=== PATIENT | female | born 1940 | race Two or more races ===

== ENCOUNTER 2024-03-20 20:31 | Inpatient (IN) | payer MEDICARE, OTHER ==
[~2024-03-20] VITALS: Ht 167.6 cm; Wt 79.2 kg
[2024-03-20 21:33] LABS: BASOPHILS # (AUTO) 0.1 K/UL (0.0-0.2); BASOPHILS % (AUTO) 0.5 % (0.0-2.0); EOSINOPHILS % (AUTO) 0.1 % (0.0-7.0); HEMATOCRIT 42.2 % (31.2-41.9); HEMOGLOBIN 13.6 g/dL (10.9-14.3); LYMPHOCYTES # (AUTO) 1.9 K/uL (0.8-4.8); MEAN CORPUSCULAR HEMOGLOBIN 30.3 uug (24.7-32.8); MEAN CORPUSCULAR HGB CONC 32 g/dL (32.3-35.6); MEAN CORPUSCULAR VOLUME 93.8 fL (75.5-95.3); MONOCYTES # (AUTO) 1.5 K/uL (0.1-1.30); MONOCYTES % (AUTO) 12.3 % (0.0-11.0); NEUTROPHILS # (AUTO) 8.6 K/uL (1.8-8.9); NEUTROPHILS % (AUTO) 71.1 % (38.5-71.5); PLATELET COUNT (AUTO) 253 K/uL (179-408); RED BLOOD CELL COUNT(AUTO) 4.49 MIL/uL (3.63-4.92); RED CELL DISTRIBUTION WIDTH 18.1 % (12.3-17.7); WHITE BLOOD COUNT (AUTO) 12.1 K/uL (3.8-11.8)
[2024-03-20 21:57] LABS: LACTIC ACID 2.8 mmol/L (0.4-2.0)
[2024-03-20 21:58] LABS: DIFFERENTIAL COMMENT 1
[2024-03-20 22:07] LABS: ALANINE AMINOTRANSFERASE 60 U/L (14-59); ALBUMIN 3.8 g/dL (3.4-5.0); ALKALINE PHOSPHATASE 94 U/L (50-136); ASPARTATE AMINOTRANSFERASE 66 U/L (15-37); BILIRUBIN,DIRECT 0.2 mg/dL (0.0-0.2); BILIRUBIN,TOTAL 0.6 mg/dL (0.2-1.0); CALCIUM 8.5 mg/dL (8.5-10.1); CARBON DIOXIDE 23 mmol/L (21-32); CREATININE 3.8 mg/dL (0.6-1.3); GLUCOSE 154 mg/dL (74-106); NT-PRO BNP 1649 pg/mL (0-125); POTASSIUM 4.8 mmol/L (3.5-5.1); TOTAL PROTEIN, SERUM 7.3 g/dL (6.4-8.2)
[2024-03-20 22:20] LABS: CHLORIDE 132 mmol/L (98-107); SODIUM SERUM 172 mmol/L (136-145); UREA NITROGEN, BLOOD 140 mg/dL (7-18)
[2024-03-20] MEDS: IV NORMAL SALINE 1000 ML BAG IV ONE ×2 (22:30→23:32)
[2024-03-20] MEDS ORDERED: MEROPENEM 1GM/NS 100ML IVPB **ER PYXIS ONLY IV ONE (23:24)
[2024-03-20] MEDS: MEROPENEM 1,000 MG in IV NORMAL SALINE 100 ML IV ONE (23:31)
[2024-03-21 01:18] LABS: ABG BASE EXCESS -5.4 mmol/L (-2.0-3.0); ABG HCO3 18.2 mmol/L (21.0-28.0); ABG PCO2 30.5 mmHg (32.0-45.0); ABG PH 7.393 (7.350-7.450); ABG PO2 127.6 mmHg (83.0-108.0); ABG SITE RIGHT BRACHIAL; AaDO2 98.6 mmHg; COHb 0.1 % (0.5-1.5); MetHb 0.3 % (0.0-1.5); O2Hb 97.9 % (94.0-98.0)
[2024-03-21] MEDS: IV NORMAL SALINE 1000 ML BAG IV ONE ×2 (02:23→04:16)
[2024-03-21 03:23] LABS: *BLOOD, URINE 2+ (NEGATIVE); *CLARITY,URINE CLOUDY (CLEAR); *COLOR,URINE DARK YELLOW (YELLOW); *KETONES,URINE 1+ (NEGATIVE); *PROTEIN,URINE 2+ (NEGATIVE); *UROBILINOGEN,URINE 0.2 E.U./dl (NORMAL); LEUKOCYTE ESTERASE ,URINE 1+ (NEGATIVE); NITRITE, URINE NEGATIVE (NEGATIVE); UGLUCOSE NEGATIVE (NEGATIVE)
[2024-03-21 03:33] LABS: *BILIRUBIN,URIN 2+ (NEGATIVE)
[2024-03-21 05:08] VITALS: BP 126/87; TEMP 97.6; O2SAT 100
[2024-03-21] MEDS ORDERED: ONDANSETRON 4 MG/2 ML VIAL IV PRN (05:45)
[2024-03-21] MEDS ORDERED: FERR-56 (06:08)
[2024-03-21] MEDS ORDERED: PRIM50TA27 (06:08)
[2024-03-21] MEDS ORDERED: INSU100C4 SUBCUT (06:08)
[2024-03-21] MEDS ORDERED: METF-440 (06:08)
[2024-03-21] MEDS ORDERED: GABA100C (06:08)
[2024-03-21] MEDS ORDERED: VALP250C (06:08)
[2024-03-21] MEDS ORDERED: LEVO88CA4 (06:08)
[2024-03-21] MEDS ORDERED: MULT-634 (06:08)
[2024-03-21] MEDS ORDERED: DOCU-141 (06:08)
[2024-03-21] MEDS ORDERED: MIRT-121 PO (06:08)
[2024-03-21] MEDS ORDERED: SACU1TAB7 (06:08)
[2024-03-21] MEDS ORDERED: TOLT2TAB2 (06:08)
[2024-03-21] MEDS ORDERED: QUET50TA (06:08)
[2024-03-21] MEDS ORDERED: QUET25TA PO (06:08)
[2024-03-21] MEDS ORDERED: MEROPENEM 500MG/NS 50ML PB ***ER PYXIS ONLY IV ONE (06:32)
[2024-03-21] MEDS: IV 1/2NS 1000 ML 1,000 ML IV PRN (06:41)
[2024-03-21] MEDS: MEROPENEM 500 MG in IV NORMAL SALINE 50 ML IV ONE (06:42)
[2024-03-21 07:12] LABS: BASOPHILS % (AUTO) 0.5 % (0.0-2.0); EOSINOPHILS % (AUTO) 0.1 % (0.0-7.0); HEMATOCRIT 37.3 % (31.2-41.9); LYMPHOCYTES # (AUTO) 1.4 K/uL (0.8-4.8); MEAN CORPUSCULAR HEMOGLOBIN 30.9 uug (24.7-32.8); MEAN CORPUSCULAR HGB CONC 32 g/dL (32.3-35.6); MEAN CORPUSCULAR VOLUME 95.9 fL (75.5-95.3); MONOCYTES # (AUTO) 0.9 K/uL (0.1-1.30); MONOCYTES % (AUTO) 9.9 % (0.0-11.0); NEUTROPHILS # (AUTO) 6.8 K/uL (1.8-8.9); NEUTROPHILS % (AUTO) 74.5 % (38.5-71.5); PLATELET COUNT (AUTO) 178 K/uL (179-408); RED BLOOD CELL COUNT(AUTO) 3.89 MIL/uL (3.63-4.92); RED CELL DISTRIBUTION WIDTH 17.9 % (12.3-17.7); WHITE BLOOD COUNT (AUTO) 9.1 K/uL (3.8-11.8)
[2024-03-21 07:47] VITALS: BP 98/44; TEMP 97; O2SAT 100
[2024-03-21 08:07] LABS: CALCIUM 6.8 mg/dL (8.5-10.1); CARBON DIOXIDE 19 mmol/L (21-32); CREATININE 2.6 mg/dL (0.6-1.3); GLUCOSE 139 mg/dL (74-106); MAGNESIUM 3.1 mg/dL (1.8-2.4); PHOSPHOROUS 4.1 mg/dL (2.5-4.9); POTASSIUM 4.7 mmol/L (3.5-5.1)
[2024-03-21 08:47] LABS: CHLORIDE 138 mmol/L (98-107); SODIUM SERUM 171 mmol/L (136-145); UREA NITROGEN, BLOOD 113 mg/dL (7-18)
[2024-03-21 08:48] LABS: DIFFERENTIAL COMMENT 1
[2024-03-21] MEDS: HEPARIN SODIUM,PORCINE 5,000 UNITS/ML VIAL SQ SCH (09:14)
[2024-03-21 09:23] VITALS: BP 110/72; TEMP 97.8; O2SAT 99
[2024-03-21 10:20] LABS: CALCIUM 6.6 mg/dL (8.5-10.1); CARBON DIOXIDE 19 mmol/L (21-32); CREATININE 2.2 mg/dL (0.6-1.3); GLUCOSE 137 mg/dL (74-106); POTASSIUM 4.6 mmol/L (3.5-5.1)
[2024-03-21] MEDS ORDERED: DIVA125C5 PO (11:04)
[2024-03-21] MEDS ORDERED: SACU1TAB PO (11:13)
[2024-03-21] MEDS ORDERED: MIRT7.5T10 PO (11:15)
[2024-03-21] MEDS ORDERED: NYST15PO4 TP (11:18)
[2024-03-21] MEDS ORDERED: LACT10SO58 PO (11:20)
[2024-03-21] MEDS ORDERED: PSYL0.4C2 PO (11:21)
[2024-03-21] MEDS ORDERED: SENN-18 PO (11:22)
[2024-03-21] MEDS ORDERED: MAG-55 PO (11:23)
[2024-03-21] MEDS ORDERED: ZOLP5TAB2 PO (11:24)
[2024-03-21] MEDS ORDERED: ASCO500C18 PO (11:25)
[2024-03-21] MEDS ORDERED: ASPI-1169 PO (11:25)
[2024-03-21] MEDS ORDERED: CHOL100045 PO (11:26)
[2024-03-21] MEDS ORDERED: CLON0.5T4 PO (11:27)
[2024-03-21] MEDS ORDERED: CYAN-51 PO (11:28)
[2024-03-21] MEDS ORDERED: BISA10SU61 RC (11:32)
[2024-03-21] MEDS ORDERED: BISA-79 PO (11:33)
[2024-03-21 11:36] LABS: SODIUM SERUM 171 mmol/L (136-145)
[2024-03-21 11:37] LABS: CHLORIDE 138 mmol/L (98-107); UREA NITROGEN, BLOOD 105 mg/dL (7-18)
[2024-03-21] MEDS ORDERED: BISACODYL 10 MG SUPP.RECT RC PRN (12:00)
[2024-03-21] MEDS ORDERED: BISACODYL 5 MG TABLET.DR PO PRN (12:00)
[2024-03-21] MEDS: IV D5W 1000ML 1,000 ML IV PRN (13:22)
[2024-03-21 14:55] LABS: CALCIUM 6.7 mg/dL (8.5-10.1); CARBON DIOXIDE 18 mmol/L (21-32); CREATININE 1.8 mg/dL (0.6-1.3); GLUCOSE 210 mg/dL (74-106); POTASSIUM 4.9 mmol/L (3.5-5.1)
[2024-03-21 15:05] LABS: SODIUM SERUM 168 mmol/L (136-145)
[2024-03-21 15:06] LABS: CHLORIDE 137 mmol/L (98-107); UREA NITROGEN, BLOOD 97 mg/dL (7-18)
[2024-03-21] MEDS: DIVALPROEX SPRINKLE 125 MG CAP.SPRINK PO SCH (15:27)
[2024-03-21] MEDS: GABAPENTIN 100 MG CAPSULE PO SCH (15:27)
[2024-03-21 15:40] VITALS: O2SAT 94
[2024-03-21 16:00] VITALS: BP 106/70; TEMP 97.6; O2SAT 100
[2024-03-21] MEDS ORDERED: hydrALAZINE HCL 20 MG/1 ML VIAL IV PRN (16:15)
[2024-03-21] MEDS ORDERED: DEXTROSE 50% 50 ML DISP.SYRIN IV PRN (16:15)
[2024-03-21 16:34] LABS: *BILIRUBIN,URIN NEGATIVE (NEGATIVE); *BLOOD, URINE 2+ (NEGATIVE); *CLARITY,URINE CLOUDY (CLEAR); *COLOR,URINE YELLOW (YELLOW); *KETONES,URINE NEGATIVE (NEGATIVE); *PROTEIN,URINE 1+ (NEGATIVE); *UROBILINOGEN,URINE 0.2 E.U./dl (NORMAL); LEUKOCYTE ESTERASE ,URINE 2+ (NEGATIVE); NITRITE, URINE NEGATIVE (NEGATIVE); PH,URINE 5.5 (5.0-8.0); UGLUCOSE 1+ (NEGATIVE)
[2024-03-21 16:35] LABS: *CREATININE,URINE 82.6 mg/dL (30-125); *URINE TOTAL PROTEIN RANDOM 53.8 mg/dL (<150/24HR)
[2024-03-21 16:38] LABS: BACTERIA,URINE FEW /HPF (NONE SEEN); MUCUS,URINE FEW /LPF (0-FEW); WBC,URINE 80-100 /HPF (0-3); YEAST,URINE MODERATE /HPF (NONE SEEN)
[2024-03-21] MEDS ORDERED: SACUBITRIL PO SCH (17:00)
[2024-03-21] MEDS ORDERED: VALSARTAN PO SCH (17:00)
[2024-03-21] MEDS ORDERED: [UNRECOGNIZED DRUG - OTHER] PO SCH (17:00)
[2024-03-21] MEDS ORDERED: SACUBITRIL/VALSARTAN 24 MG-26 TABLET PO SCH (17:00)
[2024-03-21] MEDS ORDERED: PSYLLIUM HUSK 0.4 GM PO SCH (17:00)
[2024-03-21] MEDS: BLOOD SUGAR DIAGNOSTIC 1 EACH STRIP VI SCH (17:40)
[2024-03-21] MEDS: SENNOSIDES 1 TABLET PO SCH (17:40)
[2024-03-21] MEDS: TOLTERODINE 2 MG TABLET PO SCH (17:40)
[2024-03-21] MEDS: MEROPENEM 500 MG in IV NORMAL SALINE 50 ML IV SCH (17:40)
[2024-03-21] MEDS: GLUCERNA 1.2 1000ML LIQUID GT PRN (17:40)
[2024-03-21] MEDS: QUETIAPINE FUMARATE 25 MG TABLET PO SCH ×2 (17:41→20:30)
[2024-03-21] MEDS: PSYLLIUM SEED PACKET PO SCH (17:41)
[2024-03-21] MEDS: ARGININE/GLUTAMINE/CALCIUM BMB 1 EACH POWD.PACK PO SCH (17:41)
[2024-03-21] MEDS: INSULIN REGULAR, HUMAN 1000 UNIT/10 ML VIAL SQ PRN (17:42)
[2024-03-21 19:11] LABS: CALCIUM 6.6 mg/dL (8.5-10.1); CARBON DIOXIDE 18 mmol/L (21-32); CREATININE 1.6 mg/dL (0.6-1.3); GLUCOSE 147 mg/dL (74-106)
[2024-03-21 19:18] LABS: CHLORIDE 129 mmol/L (98-107); SODIUM SERUM 160 mmol/L (136-145); UREA NITROGEN, BLOOD 88 mg/dL (7-18)
[2024-03-21 20:00] VITALS: BP 97/46; TEMP 97.6; O2SAT 94
[2024-03-21] MEDS: MIRTAZAPINE 15 MG TABLET PO SCH (20:30)
[2024-03-21] MEDS ORDERED: Medication Not On Formulary EA (Mirtazapine 7.5 MG) PO SCH (21:00)
[2024-03-21] MEDS: ACETAMINOPHEN 325 MG TABLET PO PRN (21:27)
[2024-03-21] MEDS ORDERED: MEROPENEM 500 MG in IV NORMAL SALINE 50 ML IV SCH (22:00)
[2024-03-21 22:28] LABS: CALCIUM 6.7 mg/dL (8.5-10.1); CARBON DIOXIDE 20 mmol/L (21-32); CREATININE 1.5 mg/dL (0.6-1.3); GLUCOSE 116 mg/dL (74-106); POTASSIUM 4.2 mmol/L (3.5-5.1)
[2024-03-21 22:33] LABS: CHLORIDE 132 mmol/L (98-107); SODIUM SERUM 164 mmol/L (136-145); UREA NITROGEN, BLOOD 83 mg/dL (7-18)
[2024-03-22] VITALS (10 sets, daily range): BP systolic 61–115; BP diastolic 43–85; TEMP 97–98.7; O2SAT 94–99
[2024-03-22 02:19] LABS: CALCIUM 6.9 mg/dL (8.5-10.1); CARBON DIOXIDE 19 mmol/L (21-32); CREATININE 1.4 mg/dL (0.6-1.3); GLUCOSE 119 mg/dL (74-106); UREA NITROGEN, BLOOD 76 mg/dL (7-18)
[2024-03-22 02:30] LABS: CHLORIDE 128 mmol/L (98-107); SODIUM SERUM 160 mmol/L (136-145)
[2024-03-22] MEDS: IV 1/2NS 1000 ML 1,000 ML IV PRN (04:25)
[2024-03-22] MEDS ORDERED: MEROPENEM 500 MG in IV NORMAL SALINE 50 ML IV SCH (06:00)
[2024-03-22] MEDS: LEVOTHYROXINE SODIUM 88 MCG TABLET PO SCH (06:12)
[2024-03-22 07:39] LABS: BASOPHILS % (AUTO) 0.6 % (0.0-2.0); EOSINOPHILS % (AUTO) 0.9 % (0.0-7.0); HEMATOCRIT 34.3 % (31.2-41.9); HEMOGLOBIN 11.2 g/dL (10.9-14.3); LYMPHOCYTES # (AUTO) 1.4 K/uL (0.8-4.8); LYMPHOCYTES % (AUTO) 23.8 % (20.5-51.5); MEAN CORPUSCULAR HEMOGLOBIN 31.2 uug (24.7-32.8); MEAN CORPUSCULAR HGB CONC 33 g/dL (32.3-35.6); MEAN CORPUSCULAR VOLUME 95.2 fL (75.5-95.3); MONOCYTES # (AUTO) 0.6 K/uL (0.1-1.30); MONOCYTES % (AUTO) 10.3 % (0.0-11.0); NEUTROPHILS # (AUTO) 3.7 K/uL (1.8-8.9); NEUTROPHILS % (AUTO) 64.4 % (38.5-71.5); PLATELET COUNT (AUTO) 137 K/uL (179-408); RED CELL DISTRIBUTION WIDTH 17.8 % (12.3-17.7); WHITE BLOOD COUNT (AUTO) 5.8 K/uL (3.8-11.8)
[2024-03-22 07:51] LABS: DIFFERENTIAL COMMENT 1
[2024-03-22 08:04] LABS: ALANINE AMINOTRANSFERASE 47 U/L (14-59); ALBUMIN 2.4 g/dL (3.4-5.0); ALKALINE PHOSPHATASE 73 U/L (50-136); ASPARTATE AMINOTRANSFERASE 74 U/L (15-37); BILIRUBIN,TOTAL 0.4 mg/dL (0.2-1.0); CALCIUM 7.1 mg/dL (8.5-10.1); CARBON DIOXIDE 20 mmol/L (21-32); CREATINE KINASE, TOTAL 2078 U/L (26-192); CREATININE 1.2 mg/dL (0.6-1.3); GLUCOSE 131 mg/dL (74-106); MAGNESIUM 2.8 mg/dL (1.8-2.4); PHOSPHOROUS 2.2 mg/dL (2.5-4.9); POTASSIUM 3.9 mmol/L (3.5-5.1); TOTAL PROTEIN, SERUM 5.1 g/dL (6.4-8.2); UREA NITROGEN, BLOOD 67 mg/dL (7-18)
[2024-03-22 08:12] LABS: CHLORIDE 132 mmol/L (98-107); SODIUM SERUM 163 mmol/L (136-145)
[2024-03-22] MEDS ORDERED: CHOLECALCIFEROL PO SCH (09:00)
[2024-03-22] MEDS ORDERED: Medication Not On Formulary EA (Ascorbic Acid (Vitamin C) 500 MG) PO SCH (09:00)
[2024-03-22] MEDS: CHOLECALCIFEROL 1,000 UNIT TABLET PO SCH (09:20)
[2024-03-22] MEDS: FERROUS SULFATE 325 MG TABEC PO SCH (09:21)
[2024-03-22] MEDS: ASCORBIC ACID 500 MG TABLET PO SCH (09:23)
[2024-03-22] MEDS: PRIMIDONE 50 MG TABLET PO SCH (09:23)
[2024-03-22] MEDS: CYANOCOBALAMIN 1,000 MCG TABLET PO SCH (09:23)
[2024-03-22] MEDS: DOCUSATE SODIUM 100 MG CAPSULE PO SCH (09:24)
[2024-03-22] MEDS: MULTIVITAMINS,THERAPEUTIC TABLET PO SCH (09:25)
[2024-03-22] MEDS: ASPIRIN 81 MG TAB.CHEW PO SCH (09:25)
[2024-03-22] MEDS: NYSTATIN POWDER 15 GM BOTTLE TP SCH (09:27)
[2024-03-22 11:07] LABS: CALCIUM 7.2 mg/dL (8.5-10.1); CARBON DIOXIDE 19 mmol/L (21-32); CREATININE 1.1 mg/dL (0.6-1.3); GLUCOSE 138 mg/dL (74-106); POTASSIUM 4.1 mmol/L (3.5-5.1); UREA NITROGEN, BLOOD 62 mg/dL (7-18)
[2024-03-22 11:36] LABS: CHLORIDE 131 mmol/L (98-107); SODIUM SERUM 163 mmol/L (136-145)
[2024-03-22] MEDS: IV 1/2NS 1000 ML 1,000 ML IV SCH (12:18)
[2024-03-22 15:06] LABS: CALCIUM 7.1 mg/dL (8.5-10.1); CARBON DIOXIDE 21 mmol/L (21-32); CHLORIDE 126 mmol/L (98-107); CREATININE 0.9 mg/dL (0.6-1.3); GLUCOSE 126 mg/dL (74-106); POTASSIUM 4.2 mmol/L (3.5-5.1); UREA NITROGEN, BLOOD 57 mg/dL (7-18)
[2024-03-22 15:09] LABS: SODIUM SERUM 157 mmol/L (136-145)
[2024-03-22] MEDS: NEUTRA PHOS PACKET GT ONE (17:08)
[2024-03-22 19:20] LABS: CALCIUM 7.3 mg/dL (8.5-10.1); CARBON DIOXIDE 19 mmol/L (21-32); CREATININE 0.9 mg/dL (0.6-1.3); GLUCOSE 126 mg/dL (74-106); POTASSIUM 4.5 mmol/L (3.5-5.1); UREA NITROGEN, BLOOD 49 mg/dL (7-18)
[2024-03-22 19:28] LABS: CHLORIDE 130 mmol/L (98-107); SODIUM SERUM 161 mmol/L (136-145)
[2024-03-22 22:32] LABS: CARBON DIOXIDE 21 mmol/L (21-32); CHLORIDE 125 mmol/L (98-107); CREATININE 0.8 mg/dL (0.6-1.3); GLUCOSE 135 mg/dL (74-106); POTASSIUM 4.3 mmol/L (3.5-5.1); SODIUM SERUM 155 mmol/L (136-145); UREA NITROGEN, BLOOD 44 mg/dL (7-18)
[2024-03-23] VITALS (8 sets, daily range): BP systolic 94–122; BP diastolic 34–86; TEMP 97.4–99.2; O2SAT 90–99
[2024-03-23 02:34] LABS: CALCIUM 7.1 mg/dL (8.5-10.1); CARBON DIOXIDE 21 mmol/L (21-32); CHLORIDE 123 mmol/L (98-107); CREATININE 0.8 mg/dL (0.6-1.3); GLUCOSE 151 mg/dL (74-106); POTASSIUM 4.4 mmol/L (3.5-5.1); SODIUM SERUM 153 mmol/L (136-145); UREA NITROGEN, BLOOD 38 mg/dL (7-18)
[2024-03-23 10:08] LABS: BASOPHILS % (AUTO) 0.6 % (0.0-2.0); EOSINOPHILS # (AUTO) 0.1 K/uL (0.0-0.7); EOSINOPHILS % (AUTO) 1.5 % (0.0-7.0); HEMATOCRIT 32.3 % (31.2-41.9); HEMOGLOBIN 10.9 g/dL (10.9-14.3); LYMPHOCYTES # (AUTO) 1.2 K/uL (0.8-4.8); LYMPHOCYTES % (AUTO) 21.4 % (20.5-51.5); MEAN CORPUSCULAR HGB CONC 34 g/dL (32.3-35.6); MEAN CORPUSCULAR VOLUME 91.7 fL (75.5-95.3); MONOCYTES # (AUTO) 0.7 K/uL (0.1-1.30); MONOCYTES % (AUTO) 11.9 % (0.0-11.0); NEUTROPHILS # (AUTO) 3.6 K/uL (1.8-8.9); NEUTROPHILS % (AUTO) 64.6 % (38.5-71.5); PLATELET COUNT (AUTO) 139 K/uL (179-408); RED BLOOD CELL COUNT(AUTO) 3.52 MIL/uL (3.63-4.92); RED CELL DISTRIBUTION WIDTH 16.6 % (12.3-17.7); WHITE BLOOD COUNT (AUTO) 5.5 K/uL (3.8-11.8)
[2024-03-23 10:27] LABS: DIFFERENTIAL COMMENT 1
[2024-03-23 10:39] LABS: CALCIUM 7.5 mg/dL (8.5-10.1); CARBON DIOXIDE 22 mmol/L (21-32); CHLORIDE 123 mmol/L (98-107); CREATININE 0.8 mg/dL (0.6-1.3); GLUCOSE 131 mg/dL (74-106); MAGNESIUM 2.3 mg/dL (1.8-2.4); PHOSPHOROUS 1.9 mg/dL (2.5-4.9); SODIUM SERUM 154 mmol/L (136-145); UREA NITROGEN, BLOOD 31 mg/dL (7-18)
[2024-03-23 14:27] LABS: CALCIUM 7.1 mg/dL (8.5-10.1); CARBON DIOXIDE 22 mmol/L (21-32); CHLORIDE 118 mmol/L (98-107); CREATININE 0.7 mg/dL (0.6-1.3); GLUCOSE 158 mg/dL (74-106); POTASSIUM 4.1 mmol/L (3.5-5.1); SODIUM SERUM 149 mmol/L (136-145); UREA NITROGEN, BLOOD 29 mg/dL (7-18)
[2024-03-23] MEDS: NEUTRA PHOS PACKET PO ONE (16:46)
[2024-03-23 18:44] LABS: CALCIUM 7.4 mg/dL (8.5-10.1); CARBON DIOXIDE 22 mmol/L (21-32); CHLORIDE 119 mmol/L (98-107); CREATININE 0.8 mg/dL (0.6-1.3); GLUCOSE 125 mg/dL (74-106); POTASSIUM 4.5 mmol/L (3.5-5.1); SODIUM SERUM 150 mmol/L (136-145); UREA NITROGEN, BLOOD 26 mg/dL (7-18)
[2024-03-23 22:36] LABS: CALCIUM 7.4 mg/dL (8.5-10.1); CARBON DIOXIDE 19 mmol/L (21-32); CHLORIDE 118 mmol/L (98-107); CREATININE 0.7 mg/dL (0.6-1.3); GLUCOSE 143 mg/dL (74-106); POTASSIUM 4.3 mmol/L (3.5-5.1); SODIUM SERUM 147 mmol/L (136-145); UREA NITROGEN, BLOOD 24 mg/dL (7-18)
[2024-03-24] VITALS (7 sets, daily range): BP systolic 88–125; BP diastolic 45–81; TEMP 97.4–98.5; O2SAT 92–100
[2024-03-24] MEDS: CLONAZEPAM 0.5 MG TABLET PO PRN (01:45)
[2024-03-24 07:49] LABS: BASOPHILS % (AUTO) 0.4 % (0.0-2.0); EOSINOPHILS # (AUTO) 0.1 K/uL (0.0-0.7); EOSINOPHILS % (AUTO) 2.8 % (0.0-7.0); HEMATOCRIT 30.6 % (31.2-41.9); HEMOGLOBIN 10.2 g/dL (10.9-14.3); LYMPHOCYTES # (AUTO) 1.3 K/uL (0.8-4.8); LYMPHOCYTES % (AUTO) 26.4 % (20.5-51.5); MEAN CORPUSCULAR HEMOGLOBIN 31.7 uug (24.7-32.8); MEAN CORPUSCULAR HGB CONC 33 g/dL (32.3-35.6); MEAN CORPUSCULAR VOLUME 95.3 fL (75.5-95.3); MONOCYTES # (AUTO) 0.7 K/uL (0.1-1.30); MONOCYTES % (AUTO) 13.6 % (0.0-11.0); NEUTROPHILS # (AUTO) 2.7 K/uL (1.8-8.9); NEUTROPHILS % (AUTO) 56.8 % (38.5-71.5); PLATELET COUNT (AUTO) 102 K/uL (179-408); RED BLOOD CELL COUNT(AUTO) 3.21 MIL/uL (3.63-4.92); WHITE BLOOD COUNT (AUTO) 4.8 K/uL (3.8-11.8)
[2024-03-24 08:07] LABS: DIFFERENTIAL COMMENT 1
[2024-03-24 08:10] LABS: CALCIUM 7.6 mg/dL (8.5-10.1); CARBON DIOXIDE 21 mmol/L (21-32); CHLORIDE 118 mmol/L (98-107); CREATININE 0.7 mg/dL (0.6-1.3); GLUCOSE 133 mg/dL (74-106); MAGNESIUM 2.1 mg/dL (1.8-2.4); PHOSPHOROUS 2.9 mg/dL (2.5-4.9); POTASSIUM 3.9 mmol/L (3.5-5.1); SODIUM SERUM 147 mmol/L (136-145); UREA NITROGEN, BLOOD 23 mg/dL (7-18)
[2024-03-24 11:07] LABS: PTH, INTACT 68 pg/mL (15-65)
[2024-03-24] MEDS: MEROPENEM 500 MG in IV NORMAL SALINE 50 ML IV SCH (14:00)
[2024-03-25 03:04] VITALS: O2SAT 98
[2024-03-25] MEDS: IV 1/2NS 1000 ML 1,000 ML IV SCH (04:47)
[2024-03-25 05:11] LABS: A/G RATIO 0.9 (0.7-1.7); ALBUMIN 2.2 g/dL (2.9-4.4); ALPHA-1-GLOBULIN 0.2 g/dL (0.0-0.4); ALPHA-2-GLOBULIN 0.9 g/dL (0.4-1.0); BETA GLOBULIN 0.7 g/dL (0.7-1.3); GAMMA GLOBULIN 0.6 g/dL (0.4-1.8); GLOBULIN, TOTAL 2.4 g/dL (2.2-3.9); M-SPIKE Not Observed g/dL (Not Observed); PROTEIN, TOTAL 4.6 g/dL (6.0-8.5)
[2024-03-25 05:58] VITALS: BP 125/68; TEMP 98.9; O2SAT 93
[2024-03-25 07:29] LABS: BASOPHILS % (AUTO) 0.3 % (0.0-2.0); EOSINOPHILS % (AUTO) 0.6 % (0.0-7.0); HEMOGLOBIN 10.6 g/dL (10.9-14.3); LYMPHOCYTES # (AUTO) 0.7 K/uL (0.8-4.8); LYMPHOCYTES % (AUTO) 13.8 % (20.5-51.5); MEAN CORPUSCULAR HEMOGLOBIN 30.7 uug (24.7-32.8); MEAN CORPUSCULAR HGB CONC 34 g/dL (32.3-35.6); MEAN CORPUSCULAR VOLUME 89.7 fL (75.5-95.3); MONOCYTES # (AUTO) 0.7 K/uL (0.1-1.30); MONOCYTES % (AUTO) 12.6 % (0.0-11.0); NEUTROPHILS # (AUTO) 3.9 K/uL (1.8-8.9); NEUTROPHILS % (AUTO) 72.7 % (38.5-71.5); PLATELET COUNT (AUTO) 142 K/uL (179-408); RED BLOOD CELL COUNT(AUTO) 3.46 MIL/uL (3.63-4.92); RED CELL DISTRIBUTION WIDTH 16.3 % (12.3-17.7); WHITE BLOOD COUNT (AUTO) 5.4 K/uL (3.8-11.8)
[2024-03-25 07:56] LABS: ALANINE AMINOTRANSFERASE 41 U/L (14-59); ALBUMIN 2.2 g/dL (3.4-5.0); ALKALINE PHOSPHATASE 81 U/L (50-136); ASPARTATE AMINOTRANSFERASE 34 U/L (15-37); BILIRUBIN,TOTAL 0.5 mg/dL (0.2-1.0); CALCIUM 8.3 mg/dL (8.5-10.1); CARBON DIOXIDE 23 mmol/L (21-32); CHLORIDE 112 mmol/L (98-107); CREATININE 0.8 mg/dL (0.6-1.3); GLUCOSE 174 mg/dL (74-106); MAGNESIUM 1.8 mg/dL (1.8-2.4); PHOSPHOROUS 2.9 mg/dL (2.5-4.9); POTASSIUM 4.2 mmol/L (3.5-5.1); SODIUM SERUM 146 mmol/L (136-145); TOTAL PROTEIN, SERUM 5.1 g/dL (6.4-8.2); UREA NITROGEN, BLOOD 24 mg/dL (7-18)
[2024-03-25 08:23] LABS: DIFFERENTIAL COMMENT 1
[2024-03-25 11:32] VITALS: BP 134/60; TEMP 98.7; O2SAT 98
[2024-03-25 15:50] VITALS: O2SAT 98
[2024-03-25 15:55] VITALS: BP 104/49; TEMP 98.6; O2SAT 94
[2024-03-25 19:05] VITALS: BP 116/57; TEMP 99.9; O2SAT 95
[2024-03-26] MEDS: IV 1/2NS 1000 ML 1,000 ML IV PRN (00:01)
[2024-03-26 00:16] VITALS: O2SAT 98
[2024-03-26 06:47] VITALS: BP 139/78; TEMP 98.8; O2SAT 97
[2024-03-26 07:46] LABS: BASOPHILS % (AUTO) 0.3 % (0.0-2.0); EOSINOPHILS # (AUTO) 0.1 K/uL (0.0-0.7); EOSINOPHILS % (AUTO) 1.3 % (0.0-7.0); HEMATOCRIT 27.4 % (31.2-41.9); HEMOGLOBIN 9.5 g/dL (10.9-14.3); LYMPHOCYTES # (AUTO) 0.7 K/uL (0.8-4.8); LYMPHOCYTES % (AUTO) 15.2 % (20.5-51.5); MEAN CORPUSCULAR HGB CONC 35 g/dL (32.3-35.6); MEAN CORPUSCULAR VOLUME 89.8 fL (75.5-95.3); MONOCYTES # (AUTO) 0.6 K/uL (0.1-1.30); NEUTROPHILS # (AUTO) 3.1 K/uL (1.8-8.9); NEUTROPHILS % (AUTO) 70.2 % (38.5-71.5); PLATELET COUNT (AUTO) 127 K/uL (179-408); RED BLOOD CELL COUNT(AUTO) 3.06 MIL/uL (3.63-4.92); RED CELL DISTRIBUTION WIDTH 16.8 % (12.3-17.7); WHITE BLOOD COUNT (AUTO) 4.4 K/uL (3.8-11.8)
[2024-03-26 07:58] LABS: DIFFERENTIAL COMMENT 1
[2024-03-26 08:11] LABS: ALANINE AMINOTRANSFERASE 40 U/L (14-59); ALKALINE PHOSPHATASE 64 U/L (50-136); ASPARTATE AMINOTRANSFERASE 44 U/L (15-37); BILIRUBIN,TOTAL 0.6 mg/dL (0.2-1.0); CALCIUM 7.7 mg/dL (8.5-10.1); CARBON DIOXIDE 25 mmol/L (21-32); CHLORIDE 108 mmol/L (98-107); CREATININE 0.6 mg/dL (0.6-1.3); GLUCOSE 129 mg/dL (74-106); MAGNESIUM 1.7 mg/dL (1.8-2.4); SODIUM SERUM 142 mmol/L (136-145); TOTAL PROTEIN, SERUM 4.7 g/dL (6.4-8.2); UREA NITROGEN, BLOOD 16 mg/dL (7-18)
[2024-03-26 09:01] LABS: VALPROIC ACID < 3 ug/mL (50-100)
[2024-03-26 11:32] VITALS: BP 132/80; TEMP 97.6; O2SAT 100
[2024-03-26 15:45] VITALS: BP 130/55; TEMP 98.9; O2SAT 100
[2024-03-26 16:13] VITALS: O2SAT 100
[2024-03-26] MEDS: MAGNESIUM OXIDE 400 MG TABLET GT ONE (17:46)
[2024-03-26 19:40] VITALS: BP 113/63; TEMP 97.5; O2SAT 97
[2024-03-27 00:36] VITALS: O2SAT 99
[2024-03-27] MEDS: QUETIAPINE FUMARATE 25 MG TABLET PO PRN (01:15)
[2024-03-27 07:34] LABS: BASOPHILS % (AUTO) 0.5 % (0.0-2.0); EOSINOPHILS # (AUTO) 0.1 K/uL (0.0-0.7); EOSINOPHILS % (AUTO) 2.7 % (0.0-7.0); HEMOGLOBIN 9.6 g/dL (10.9-14.3); LYMPHOCYTES # (AUTO) 0.8 K/uL (0.8-4.8); LYMPHOCYTES % (AUTO) 19.9 % (20.5-51.5); MEAN CORPUSCULAR HEMOGLOBIN 30.7 uug (24.7-32.8); MEAN CORPUSCULAR HGB CONC 35 g/dL (32.3-35.6); MONOCYTES # (AUTO) 0.6 K/uL (0.1-1.30); MONOCYTES % (AUTO) 13.9 % (0.0-11.0); NEUTROPHILS # (AUTO) 2.5 K/uL (1.8-8.9); PLATELET COUNT (AUTO) 137 K/uL (179-408); RED BLOOD CELL COUNT(AUTO) 3.14 MIL/uL (3.63-4.92); RED CELL DISTRIBUTION WIDTH 16.5 % (12.3-17.7)
[2024-03-27 07:45] LABS: CREATININE 0.7 mg/dL (0.6-1.3); GLUCOSE 156 mg/dL (74-106); MAGNESIUM 1.9 mg/dL (1.8-2.4); PHOSPHOROUS 3.5 mg/dL (2.5-4.9); UREA NITROGEN, BLOOD 23 mg/dL (7-18)
[2024-03-27 08:28] LABS: DIFFERENTIAL COMMENT 1
[2024-03-27 11:45] VITALS: BP 119/65; TEMP 98.3; O2SAT 95
[2024-03-27 12:47] LABS: SODIUM SERUM 145 mmol/L (136-145)
[2024-03-27 12:49] LABS: CARBON DIOXIDE 23 mmol/L (21-32); CHLORIDE 108 mmol/L (98-107); POTASSIUM 4.5 mmol/L (3.5-5.1)
[2024-03-27 15:41] VITALS: BP 113/81; TEMP 98.2; O2SAT 100
[2024-03-27 16:00] VITALS: O2SAT 100
[2024-03-27 21:21] VITALS: BP 120/86; TEMP 97.8; O2SAT 99
[2024-03-28] MEDS: QUETIAPINE FUMARATE 25 MG TABLET PO PRN (01:37)
[2024-03-28 05:23] VITALS: BP 126/79; TEMP 99.5; O2SAT 98
[2024-03-28 07:15] LABS: BASOPHILS % (AUTO) 0.3 % (0.0-2.0); EOSINOPHILS # (AUTO) 0.1 K/uL (0.0-0.7); EOSINOPHILS % (AUTO) 1.5 % (0.0-7.0); HEMATOCRIT 27.5 % (31.2-41.9); HEMOGLOBIN 9.8 g/dL (10.9-14.3); LYMPHOCYTES # (AUTO) 0.6 K/uL (0.8-4.8); LYMPHOCYTES % (AUTO) 12.8 % (20.5-51.5); MEAN CORPUSCULAR HEMOGLOBIN 31.5 uug (24.7-32.8); MEAN CORPUSCULAR HGB CONC 36 g/dL (32.3-35.6); MEAN CORPUSCULAR VOLUME 88.5 fL (75.5-95.3); MONOCYTES # (AUTO) 0.6 K/uL (0.1-1.30); MONOCYTES % (AUTO) 14.8 % (0.0-11.0); NEUTROPHILS # (AUTO) 3.1 K/uL (1.8-8.9); NEUTROPHILS % (AUTO) 70.6 % (38.5-71.5); PLATELET COUNT (AUTO) 157 K/uL (179-408); RED BLOOD CELL COUNT(AUTO) 3.11 MIL/uL (3.63-4.92); RED CELL DISTRIBUTION WIDTH 16.8 % (12.3-17.7); WHITE BLOOD COUNT (AUTO) 4.4 K/uL (3.8-11.8)
[2024-03-28 07:36] LABS: DIFFERENTIAL COMMENT 1
[2024-03-28 08:00] LABS: CALCIUM 8.3 mg/dL (8.5-10.1); CARBON DIOXIDE 27 mmol/L (21-32); CHLORIDE 106 mmol/L (98-107); CREATININE 0.6 mg/dL (0.6-1.3); GLUCOSE 157 mg/dL (74-106); MAGNESIUM 2.1 mg/dL (1.8-2.4); PHOSPHOROUS 3.9 mg/dL (2.5-4.9); POTASSIUM 4.2 mmol/L (3.5-5.1); SODIUM SERUM 142 mmol/L (136-145); UREA NITROGEN, BLOOD 22 mg/dL (7-18)
[2024-03-28 12:00] VITALS: BP 113/81; TEMP 98.2; O2SAT 100
[2024-03-28 16:00] VITALS: BP 120/78; TEMP 97.8; O2SAT 99
[2024-03-28 19:50] VITALS: BP 116/52; TEMP 97.7
[2024-03-28] MEDS: LACTULOSE 20 G/30 ML LIQUID UDC PO PRN (20:35)
[2024-03-29 06:00] VITALS: BP 129/58; TEMP 98.5; O2SAT 95
[2024-03-29 11:26] VITALS: BP 111/50; TEMP 98.3; O2SAT 94
[2024-03-29 12:00] VITALS: O2SAT 96
[2024-03-29] MEDS: MORPHINE SULFATE 2 MG/1 ML DISP.SYRIN IV ONE (12:24)
[2024-03-29 16:08] VITALS: BP 95/58; TEMP 98.2; O2SAT 96
[2024-03-29] MEDS: MORPHINE SULFATE 2 MG/1 ML DISP.SYRIN IV PRN (20:11)
[2024-03-29 22:51] VITALS: BP 100/50; TEMP 97.6; O2SAT 94
[2024-03-30 07:11] VITALS: BP 102/45; TEMP 98.2; O2SAT 94
[2024-03-30 12:00] VITALS: BP 98/60; TEMP 97.6; O2SAT 96; O2SAT 98
[2024-03-30 16:00] VITALS: BP 104/66; TEMP 97.6; O2SAT 94
[2024-03-30 18:29] VITALS: BP 104/66; TEMP 97.6; O2SAT 94
[2024-03-30 19:38] VITALS: BP 106/50; TEMP 98.6; O2SAT 97
[2024-03-31 05:13] VITALS: BP 104/54; TEMP 98.8; O2SAT 94
[2024-03-31] MEDS ORDERED: morphine SQ (10:37)
[2024-03-31 16:00] VITALS: BP_SYST 103; BP_SYST 116; BP_DIAS 58; BP_DIAS 60; TEMP 98.6; O2SAT 97
[2024-03-31 16:23] VITALS: O2SAT 97
[2024-03-31 20:00] VITALS: BP 153/95; TEMP 98.5; O2SAT 97
[2024-04-01 05:17] VITALS: O2SAT 97
[2024-04-01 06:33] VITALS: BP 124/51; TEMP 100; O2SAT 93
[2024-04-01 07:45] VITALS: TEMP 98
[2024-04-01 11:52] VITALS: BP 130/59; TEMP 98.9; O2SAT 95
[2024-04-01 15:50] VITALS: BP 126/62; TEMP 98; O2SAT 95
[2024-04-01 22:41] VITALS: BP 138/48; TEMP 97.9; O2SAT 90
== END 2024-04-01 21:10 | disposition hospice, home (50) | DRG 871 ==
LOC: ER 20:31 → TELE3 03-21 03:43 → TELE-TD3 03-21 06:01 → TELE3 03-23 15:53 → MEDSURG3 03-24 11:05
PROVIDERS: ADMIT Nurse Practitioner Acute Care
PROC: 05HD33Z Insertion of Infusion Device into Right Cephalic Vein, Percutaneous Approach (ICD-10-PCS; principal; 2024-03-21)
PROC: 0DH67UZ Insertion of Feeding Device into Stomach, Via Natural or Artificial Opening (ICD-10-PCS; 2024-03-21)
PROC: 3E0G76Z Introduction of Nutritional Substance into Upper GI, Via Natural or Artificial Opening (ICD-10-PCS; 2024-03-21)
DX: A41.9 Sepsis, unspecified organism (principal); G93.41 Metabolic encephalopathy; I21.A1 Myocardial infarction type 2; E87.0 Hyperosmolality and hypernatremia; N39.0 Urinary tract infection, site not specified; E87.20 Acidosis, unspecified; I48.20 Chronic atrial fibrillation, unspecified; N17.9 Acute kidney failure, unspecified; F01.52 Vascular dementia, unspecified severity, with psychotic disturbance; I50.32 Chronic diastolic (congestive) heart failure; J98.11 Atelectasis; Z53.29 Procedure and treatment not carried out because of patient's decision for other reasons; Z66 Do not resuscitate; R65.20 Severe sepsis without septic shock; E03.9 Hypothyroidism, unspecified; E86.0 Dehydration; M89.8X9 Other specified disorders of bone, unspecified site; S90.32XA Contusion of left foot, initial encounter; X58.XXXA Exposure to other specified factors, initial encounter; Y92.129 Unspecified place in nursing home as the place of occurrence of the external cause; R13.10 Dysphagia, unspecified; Z79.4 Long term (current) use of insulin; Z79.84 Long term (current) use of oral hypoglycemic drugs; Z79.899 Other long term (current) drug therapy; Z87.440 Personal history of urinary (tract) infections; I11.0 Hypertensive heart disease with heart failure; E86.1 Hypovolemia; S91.011A Laceration without foreign body, right ankle, initial encounter; R09.02 Hypoxemia; E11.40 Type 2 diabetes mellitus with diabetic neuropathy, unspecified; Z78.1 Physical restraint status
CPT/HCPCS: 36415; 36600; 71045; 76770; 80164; 82803; 83605; 83735; 83970; 84100; 84155; 84165; 84300; 84443; 84484; 85025; 85730; 87040; 93307; 94760; A4663; A6209; A6213; G0378; J1644; J1815; J2185; J2270; J7040; J7070